=== PATIENT | male | born 1995 | race Caucasian/White ===

== ENCOUNTER 2018-06-21 19:53 | Emergency (ER) | payer BC ==
[2018-06-21] MEDS ORDERED: Ketorolac 60 MG/2 ML SDV IM ONE (20:12)
--- NOTE | 2018-06-21 20:15 | EDM.PDOC ---
ED HPI GENERAL MEDICAL PROBLEM - General Chief Complaint: Lower Extremity Injury/Pain Stated Complaint: PT HURT LT LEG Time Seen by Provider: 06/21/18 19:57 - History of Present Illness INITIAL COMMENTS - FREE TEXT/NARRATIVE: HISTORY AND PHYSICAL: History of present illness: Patient 22-year-old white male who presents with a concern of intermittent left thigh pain 4 years he states he was bowling tonight and went to put pressure on his left leg and once unable to tolerate the discomfort he states he's been unable to weight-bear due to pain since he denies fever chills nausea vomiting trauma or other concern. Review of systems: As per history of present illness and below otherwise all systems reviewed and negative. Past medical history: As per history of present illness and as reviewed below otherwise noncontributory. Surgical history: As per history of present illness and as reviewed below otherwise noncontributory. Social history: No reported history of drug or alcohol abuse. Family history: As per history of present illness and as reviewed below otherwise noncontributory. Physical exam: HEENT: Atraumatic, normocephalic, pupils reactive, negative for conjunctival pallor or scleral icterus, mucous membranes moist, throat clear, neck supple, nontender, trachea midline. Lungs: Clear to auscultation, breath sounds equal bilaterally, chest nontender. Heart: S1S2, regular, negative for clicks, rubs, or JVD. Abdomen: Soft, nondistended, nontender. Negative for masses or hepatosplenomegaly. Negative for costovertebral tenderness. Pelvis: Stable nontender. Genitourinary: Deferred. Rectal: Deferred. Extremities: Atraumatic, negative for cords or calf pain. Neurovascular unremarkable. Neuro: Awake, alert, oriented. Cranial nerves II through XII unremarkable. Cerebellum unremarkable. Motor and sensory unremarkable throughout. Exam nonfocal. Diagnostics: CBC CMP CPK ESR CRP x-ray left hip/femur Therapeutics: Toradol 60 mg IM Impression: #1 intermittent left thigh pain etiology to be determined Definitive disposition and diagnosis as appropriate pending reevaluation and review of above. L leg Pain Score (Numeric/FACES): 9 - Related Data Allergies Allergy/AdvReac Type Severity Reaction Status Date / Time Penicillins Allergy Anaphylactic Verified 06/21/18 20:02 Shock Home Meds: Home Meds . [No Known Home Meds] 06/21/18 [History] Past Medical History - Past Health History Medical/Surgical History: Denies Medical/Surgical History Social & Family History - Tobacco Use Smoking Status *Q: Current Every Day Smoker Years of Tobacco use: 2 Packs/Tins Daily: 1 - Caffeine Use Caffeine Use: Reports: Energy Drinks - Alcohol Use Days Per Week of Alcohol Use: 7 Number of Drinks Per Day: 12 Total Drinks Per Week: 84 - Recreational Drug Use Recreational Drug Use: Yes Drug Use in Last 12 Months: No Recreational Drug Type: Reports: Marijuana/Hashish Review of Systems - Review of Systems Review Of Systems: ROS reveals no pertinent complaints other than HPI. ED EXAM, GENERAL - Physical Exam Exam: See Below (The dictation) Course - Vital Signs Last Recorded V/S: Last Vital Signs Temp 36.7 C 06/21/18 19:59 Pulse 108 H 06/21/18 19:59 Resp 14 06/21/18 19:59 BP 149/70 H 06/21/18 19:59 Pulse Ox 95 06/21/18 19:59 - Orders/Labs/Meds Orders: Active Orders 24 hr Category Date Time Status Femur Min 2V Lt [CR] Stat Exams 06/21/18 20:12 Taken Hip Min 2V or 3V Lt [CR] Stat Exams 06/21/18 20:11 Taken DRUG SCREEN, URINE [URCHEM] Stat Lab 06/21/18 20:10 Ordered UA W/MICROSCOPIC [URIN] Stat Lab 06/21/18 20:10 Ordered Labs: Laboratory Tests 06/21/18 06/21/18 06/21/18 Range/Units 20:20 20:20 20:20 WBC 7.72 (4.0-11.0) K/uL RBC 5.21 (4.50-5.90) M/uL Hgb 16.2 (13.0-17.0) g/dL Hct 47.1 (38.0-50.0) % MCV 90.4 (80.0-98.0) fL MCH 31.1 (27.0-32.0) pg MCHC 34.4 (31.0-37.0) g/dL RDW Std Deviation 45.9 (28.0-62.0) fl RDW Coeff of Efrain 14 (11.0-15.0) % Plt Count 278 (150-400) K/uL MPV 11.60 (7.40-12.00) fL Neut % (Auto) 47.0 L (48.0-80.0) % Lymph % (Auto) 43.0 H (16.0-40.0) % Millard % (Auto) 6.5 (0.0-15.0) % Eos % (Auto) 3.2 (0.0-7.0) % Baso % (Auto) 0.3 (0.0-1.5) % Neut # (Auto) 3.6 (1.4-5.7) K/uL Lymph # (Auto) 3.3 H (0.6-2.4) K/uL Millard # (Auto) 0.5 (0.0-0.8) K/uL Eos # (Auto) 0.3 (0.0-0.7) K/uL Baso # (Auto) 0.0 (0.0-0.1) K/uL Nucleated RBC % 0.0 /100WBC Nucleated RBCs # 0 K/uL ESR 1 (0-14) mm/hr Sodium 143 (136-148) mmol/L Potassium 3.8 (3.5-5.1) mmol/L Chloride 107 (98-107) mmol/L Carbon Dioxide 23.1 (21.0-32.0) mmol/L BUN 10 (7.0-18.0) mg/dL Creatinine 1.3 (0.8-1.3) mg/dL Est Cr Clr Drug Dosing TNP Estimated GFR (MDRD) > 60.0 ml/min Glucose 94 (74-106) mg/dL Calcium 8.3 L (8.5-10.1) mg/dL Total Bilirubin 0.3 (0.2-1.0) mg/dL AST 30 (15-37) IU/L ALT 48 (14-63) IU/L Alkaline Phosphatase 86 (46-116) U/L C-Reactive Protein 0.60 (0.00-0.90) mg/dL Total Protein 7.3 (6.4-8.2) g/dL Albumin 3.8 (3.4-5.0) g/dL Globulin 3.5 (2.0-3.5) g/dL Albumin/Globulin Ratio 1.1 L (1.3-2.8) Meds: Medications Discontinued Medications Generic Name Dose Route Start Last Admin Trade Name Lillie PRN Reason Stop Dose Admin Ketorolac Tromethamine 60 mg 06/21/18 20:12 06/21/18 20:21 Toradol IM 06/21/18 20:13 60 mg ONETIME ONE Administration Departure - Departure Time of Disposition: 21:22 Disposition: Against Medical Advice 07 Condition: Good Clinical Impression: Thigh pain - Discharge Information Forms: ED Department Discharge - My Orders Last 24 Hours: My Active Orders 06/21/18 20:10 DRUG SCREEN, URINE [URCHEM] Stat UA W/MICROSCOPIC [URIN] Stat 06/21/18 20:11 Hip Min 2V or 3V Lt [CR] Stat 06/21/18 20:12 Femur Min 2V Lt [CR] Stat - Assessment/Plan Last 24 Hours: My Active Orders 06/21/18 20:10 DRUG SCREEN, URINE [URCHEM] Stat UA W/MICROSCOPIC [URIN] Stat 06/21/18 20:11 Hip Min 2V or 3V Lt [CR] Stat 06/21/18 20:12 Femur Min 2V Lt [CR] Stat
[2018-06-21 20:54] LABS: CHLORIDE,CL 107 mmol/L (98-107); SODIUM,NA 143 mmol/L (136-148)
--- NOTE | 2018-06-23 15:02 | CR ---
EXAM DATE: 06/21/18 PATIENT'S AGE: 22 Patient: TRICE LARA Facility: [place], [place] Site . Site : 1995 Study: XRay Hip Left [id number]/22/2018 8:51:28 PM Ordering Physician: Doctor Zayas Final Report: Indication: Midthigh pain. Technique: Two views of the left hip were obtained. Comparison: None Findings: The left femoral head is seated within the acetabulum. No acute fracture or subluxation is identified. Impression: No acute fracture. Dictated by Debbie Styles MD @ Jun 21 2018 9:06PM (Electronic Signature) Report Signed by Proxy. ARIADNE
--- NOTE | 2018-06-23 15:03 | CR ---
EXAM DATE: 06/21/18 PATIENT'S AGE: 22 Patient: TRICE LARA Facility: [place], [place] Site . Site : 1995 Study: XRay Extremity Left femur [id number]/22/2018 8:52:48 PM Ordering Physician: Doctor Zayas Final Report: Indication: Left midthigh pain. Technique: Two views of the left lower leg were obtained. Comparison: None Findings: No acute fracture or subluxation is identified. The joint spaces are well maintained. The proximal femur is not included on this exam but is included on the hip x-ray. Impression: No acute fracture Dictated by Debbie Styles MD @ Jun 21 2018 9:07PM (Electronic Signature) Report Signed by Proxy. ARIADNE
== END 2018-06-21 21:20 | disposition left against medical advice (07) ==
LOC: MW.ED 19:53
DX: M79.652 Pain in left thigh (principal); F17.210 Nicotine dependence, cigarettes, uncomplicated; Z88.0 Allergy status to penicillin
CPT/HCPCS: 36415; 73502; 73552; 80053; 85025; 85652; 86140; 96372; 99283; J1885